=== PATIENT | male | born 1960 | race Caucasian/White ===

== ENCOUNTER → 2016-07-29 | Outpatient (CLI) | payer BC ==
[~2016-07-29] MED LIST: NA BICARBONATE 50 MEQ/50 ML VIAL ONE
--- NOTE | 2016-07-29 15:19 | US ---
Ultrasound-Guided Paracentesis History: Malignant ascites, abdominal pain. Consent: After the risks, benefits, and alternatives of ultrasound-guided paracentesis were explained to the patient and all questions were answered, witnessed informed consent was obtained for ultrasou nd-guided paracentesis. Timeout performed. Procedure: Ultrasound guidance was utilized to locate a large pocket of ascites in the right lower qu adrant of the abdomen. Skin was prepped with ChloraPrep solution. Lidocaine with bicarbonate was use d for local anesthesia. Then, a 6-[employer] [employer] catheter was advanced with ultrasound guidance into the ascites. The needle was removed. Catheter was left in place while 4000 mL of yellow ascites were re moved. Catheter removed at the end of the procedure. Discharge instructions were given. Patient tolerated the procedure well without immediate complicatio ns. Impression: Successful ultrasound-guided paracentesis. Crosscutting Measure #226: Current tobacco user: no.
== END ==
LOC: FIMAGING 13:44
PROVIDERS: ATTEND Internal Medicine Hematology & Oncology
PROC: 0W9G3ZZ Drainage of Peritoneal Cavity, Percutaneous Approach (ICD-10-PCS; principal; 2016-07-29)
DX: R18.0 Malignant ascites (principal); C18.7 Malignant neoplasm of sigmoid colon

== ENCOUNTER → 2016-08-14 | Outpatient (CLI) | payer BC ==
[~2016-08-14] MED LIST changes: +LIDOCAINE 1% 30 ML SDV ONE
--- NOTE | 2016-08-14 13:59 | US ---
Ultrasound-Guided Paracentesis Indication: Malignant ascites. Crosscutting Measure #226 : Current tobacco user No. Consent: After the risks, benefits and alternatives of ultrasound-guided paracentesis were explained to the patient and all questions were answered, witnessed informed consent was obtained. Procedure: A preprocedural ultrasound was performed to identify the largest pocket of ascites in the right lower quadrant. A timeout was performed. The skin was marked, prepped and draped in the usual s terile fashion, and numbed with 1% lidocaine with bicarbonate. A paracentesis catheter was advanced u nder ultrasound guidance, using a sterile probe cover and sterile gel, into the ascites. The needle w as removed and the catheter was left in place while 3800 mL of clear yellow ascites was removed. The catheter was removed at the end of the procedure, hemostasis achieved, and a sterile dressing applied . Postprocedure instructions were given. The patient tolerated the procedure well without immediate com plications. Impression: Ultrasound-guided paracentesis as above.
== END ==
LOC: FIMAGING 12:20
PROVIDERS: ATTEND Nurse Practitioner
PROC: 0W9F3ZZ Drainage of Abdominal Wall, Percutaneous Approach (ICD-10-PCS; principal; 2016-08-14)
DX: R18.0 Malignant ascites (principal); C18.7 Malignant neoplasm of sigmoid colon

== ENCOUNTER → 2016-08-26 | Outpatient (CLI) | payer BC ==
[~2016-08-26] MED LIST changes: +ALBUMIN 25% 100 ML SOLN IV ONE
--- NOTE | 2016-08-26 18:14 | US ---
Ultrasound-Guided Therapeutic Paracentesis Indication: Ascites. History of colon cancer. Crosscutting Measure #226: Current tobacco user: No. Comparison: Paracentesis dated August 14, 2016 Consent: After the risks, benefits and alternatives of ultrasound-guided paracentesis were explained to the patient and all questions were answered, witnessed informed consent was obtained for ultrasoun d-guided paracentesis. Procedure: A preprocedural ultrasound was performed to identify the largest pocket of ascites in the right lower quadrant. The skin was marked, cleaned with ChloraPrep solution, and numbed with 1% lidoc melissa with bicarbonate. A 6-Amharic [employer] catheter was advanced under ultrasound guidance into the a scites. The needle was removed. Catheter was left in place while 5100 mL of straw-colored ascites wer e removed. The catheter was removed at the end of the procedure. Intravenous albumin was uneventfully administered by the radiology nursing staff. Patient received 10 0 mL albumin 25%. Discharge instructions were given. Patient tolerated the procedure well without immediate complicatio ns. Impression: 1. Successful ultrasound-guided paracentesis. 2. Successful removal of 5100 mL of ascites. 3. Albumin was administered intravenously as per protocol.
== END ==
LOC: FIMAGING 13:34
PROVIDERS: ATTEND Internal Medicine Hematology & Oncology
PROC: 0W9F3ZZ Drainage of Abdominal Wall, Percutaneous Approach (ICD-10-PCS; principal; 2016-08-26)
DX: R18.8 Other ascites (principal); C18.9 Malignant neoplasm of colon, unspecified
CPT/HCPCS: P9047

== ENCOUNTER → 2016-09-04 | Outpatient (CLI) | payer BC | LOC: FIMAGING 09:22 | PROVIDERS: ATTEND Internal Medicine Hematology & Oncology | PROC: 0W9F30Z Drainage of Abdominal Wall with Drainage Device, Percutaneous Approach (ICD-10-PCS; principal; 2016-09-04) | DX: R18.0 Malignant ascites (principal); C78.5 Secondary malignant neoplasm of large intestine and rectum | CPT/HCPCS: P9047 ==

== ENCOUNTER → 2016-09-09 | Outpatient (CLI) | payer BC | LOC: FIMAGING 14:05 | PROVIDERS: ATTEND Internal Medicine Hematology & Oncology | PROC: 0W9F3ZZ Drainage of Abdominal Wall, Percutaneous Approach (ICD-10-PCS; principal; 2016-09-09) | DX: R18.0 Malignant ascites (principal); C18.9 Malignant neoplasm of colon, unspecified | CPT/HCPCS: P9047 ==

== ENCOUNTER 2016-09-15 11:06 | Day surgery (SDC) | payer BC ==
[2016-09-15] MEDS ORDERED: LR 1,000 ML IV ONE (11:48)
[2016-09-15] MEDS ORDERED: PROPOFOL 200 MG/20 ML VIAL ONE (12:37)
[2016-09-15] MEDS ORDERED: fentaNYL 250 MCG/5 ML INJ ONE (12:37)
[2016-09-15] MEDS ORDERED: ONDANSETRON 4 MG/2 ML VIAL ONE (12:45)
[2016-09-15] MEDS ORDERED: MIDAZOLAM 2 MG/2 ML VIAL ONE (12:52)
[2016-09-15] MEDS ORDERED: BUPIVACAINE/EPI 0.5% 30 ML SDV ONE ×2 (13:18→13:30)
[2016-09-15] MEDS ORDERED: SKIN ADHESIVE (DERMABOND) 1 EACH TP ONE (13:39)
--- NOTE | 2016-09-15 18:49 | GOP ---
DATE OF OPERATION: 09/15/2016 SURGEON: Cuco Moore MD CENTER CUSTOMER SERVICE ASSOCIATE: Jana Chambers. ANESTHESIA: MAC. ANESTHESIOLOGIST: Dr. Bhardwaj. PREOPERATIVE DIAGNOSIS: Recurrent malignant ascites. POSTOPERATIVE DIAGNOSIS: Recurrent malignant ascites. PROCEDURE PERFORMED: Abdominal PleurX catheter placement with ultrasound and fluoroscopic guidance. FINDINGS: INDICATIONS: A 56-year-old male with a recurrent symptomatic malignant ascites secondary to metasta tic colon cancer. He is undergoing a PleurX catheter placement at this time. Risks and benefits we re explained of bleeding, infection, recurrent ascites, bowel injury. All questions were answered. He desires to proceed. DESCRIPTION OF PROCEDURE: Monitored anesthesia was started. The right lower quadrant was interroga darrius with ultrasound, identifying an easy clear space for a needle puncture. Local anesthetic was in filtrated. The abdominal cavity was directly punctured as evidenced by clear ascitic fluid. A guid ewire passed easily into the abdominal cavity. A counter incision was made superior to the puncture site. The PleurX catheter was then tunneled inferiorly. The cuff was placed on multiple cm away f rom the exit site. The intraoperative fluoroscopy confirmed satisfactory pelvic positioning of the guide wire. The tunnel tract was initially dilated, followed by placement of the tear-away sheath. The catheter was passed to its hub without resistance. There was easy passage of 7.5 L of clear as citic fluid. After catheter placement had been completed, the patient remained hemodynamically norm al without respiratory difficulty with fluid evacuation. Satisfactory hemostasis was assured. The puncture site was closed with a Monocryl suture and Dermabond. The catheter secured to the skin wit h a nylon suture. Sterile dressings were applied and the patient taken to recovery uneventfully. /[id number]/MODL
[2016-09-18] MEDS ORDERED: ALBUMIN 25% 50 ML SOLN IV ONE (15:25)
[2016-09-18] MEDS ORDERED: ALBUMIN 25% 100 ML SOLN IV ONE (15:36)
== END 2016-09-15 16:45 | disposition home or self-care (01) ==
LOC: FSGY 11:06
PROVIDERS: ATTEND Surgery
PROC: 0W9G30Z Drainage of Peritoneal Cavity with Drainage Device, Percutaneous Approach (ICD-10-PCS; principal; 2016-09-15 12:45)
DX: C78.6 Secondary malignant neoplasm of retroperitoneum and peritoneum (principal); R18.0 Malignant ascites; Z90.49 Acquired absence of other specified parts of digestive tract; Z85.038 Personal history of other malignant neoplasm of large intestine
CPT/HCPCS: 49406; 76001; C1729; J2250; J2405; J2704; J3010; P9047

== ENCOUNTER 2016-09-23 11:47 | Inpatient (IN) | payer BC ==
[2016-09-23] MEDS ORDERED: ONDANSETRON 4 MG/2 ML VIAL IVP PRN (14:03)
[2016-09-23] MEDS ORDERED: ACETAMINOPHEN 325 MG TAB PO PRN (14:03)
[2016-09-23] MEDS ORDERED: HYDROmorphONE/DILAUDID 2 MG/ML INJ IVP PRN (14:03)
[2016-09-23] MEDS ORDERED: PROMETHAZINE HCL 25 MG/ML INJ IVP PRN (14:03)
[2016-09-23] MEDS ORDERED: oxyCODONE IR 5 MG TAB PO PRN (14:03)
[2016-09-23] MEDS ORDERED: D5W NS W/ 20 KCl/L 1,000 ML IV SCH (14:15)
--- NOTE | 2016-09-23 14:40 | GHP ---
[f rep st] HISTORY AND PHYSICAL DATE OF ADMISSION: 09/23/2016 CHIEF COMPLAINT: Nausea, vomiting, constipation. HPI: This is a 56-year-old male with history of colon cancer and peritoneal carcinomatosis who had a Pavillion drain placed last week who was directly admitted to [address] [place] [address] from his oncologist's office du e to persistent nausea and vomiting. The patient states that he has had nausea and vomiting the past couple days, that got worse today to the point where he is unable to tolerate fluids or solids. Currently he denies any flatus. He did have a small bowel movement this morning that he described as "not productive." He denied any feve rs or chills. A Pavillion drain was placed last week by Dr. Moore, where per the operative note 7.5 L of clear ascitic fluid were removed. Since the drain was placed he has had problems with removing fluid from his catheter. His was able to remove 750 cc on Wednesday but he has not been drained since. PAST MEDICAL HISTORY: 1. Colon cancer and peritoneal carcinomatosis. Status post PleurX catheter placement on 09/15/2016 . 2. Obstructive sleep apnea. PAST SURGICAL HISTORY: 1. Bowel resection. 2. PleurX catheter placement. HOME MEDICATIONS: Were reviewed. Refer to 2 Minutes for details. ALLERGIES: No known drug allergies. SOCIAL HISTORY: The patient is and lives in [place] with his . He denies any alcohol , tobacco or illicit drug use. FAMILY HISTORY: Significant for colon cancer in his father. REVIEW OF SYSTEMS: Comprehensive 10-point review of systems was done and is negative except for as mentioned in the HPI. PHYSICAL EXAM: GENERAL: No acute distress. HEAD: Normocephalic, atraumatic. EYES: PERRLA. Scl erae anicteric. MOUTH: Moist mucous membranes. NECK: Supple. No lymphadenopathy. CARDIOVASCULA R: S1-S2 no murmurs, rubs, clicks, gallops, or JVD. No lower extremity edema. PULMONARY: Lungs a re clear. No wheezes, rales, or rhonchi. ABDOMEN: Significantly distended with absent bowel sound s. There is no guarding or rebound tenderness. EXTREMITIES: No clubbing or cyanosis. 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 No focal motor or sensory deficits. SKIN: Scattered erythematous papules over the chest and abdomen. Diagnostics done this morning at [facility] were reviewed. WBC is 8.7, hemoglobin 12.9, hematocrit 40.4, platelets 469. Sodium 129, potassium 5.5, chloride 97, BUN 17, creatinine 0 .8, glucose 108. LFTs unremarkable. Alkaline phosphatase elevated at 141. CEA was 73.4. Abdomina l x-ray was reviewed and visualized and personally interpreted as negative for free air, normal hemalatha l gas pattern. ASSESSMENT AND PLAN: This is a 56-year-old male with history of colon cancer with peritoneal carcin omatosis status post PleurX catheter placement last week, presenting with: 1. Nausea, vomiting and constipation concerning for bowel obstruction due to recurrent ascites. a. Plan. The patient will be admitted to the oncology unit. We will attempt to access the patient 's PleurX catheter with appropriate vacuum bottle to remove the fluid. We will order a CT scan of t he abdomen and pelvis to further evaluate for obstruction. I have a call in to the patient's surgeo n, Dr. Cuco Moore, to help with this situation as well. 2. Hyponatremia, likely hypervolemic in etiology. a. Plan: Recommend diuresis and monitor. 3. Colon cancer and peritoneal carcinomatosis. PLAN: Oncology has been consulted. The patient requests to be DNR status. /[id number]/MODL
[2016-09-23] MEDS ORDERED: IOPAMIDOL (ISOVUE-300) 100 ML BTL IV ONE (16:15)
--- NOTE | 2016-09-23 16:45 | GCON ---
[f rep st] CONSULTATION HEMATOLOGY/ONCOLOGY CONSULTATION REASON FOR CONSULTATION: Metastatic colon cancer, nausea, vomiting, abdominal distention. HISTORY OF PRESENT ILLNESS: The patient is a 56-year-old man diagnosed in May 2014 with a stage IIIA mucinous colon cancer, treated with hemicolectomy and adjuvant chemotherapy (FOLFOX), completed 01/2015. He recurred in July 2015 and was treated with FOLFIRI plus bevacizumab from July to May 2016. He began irinotecan and panitumumab in June 2016. He has peritoneal carcinomatosis and has required frequent paracentesis. He recently had a peritoneal PleurX catheter placed. He and his have not been able to get additional bottles approved yet by the insurance and so he has not been able to do regular home drains. He was able to remove 750 cc on Wednesday. He has noted nausea and vomiting over the last few days as well as increased abdominal distention. He has also been constipated with very small, hard bowel movements, last this morning. He has not been using antiemetics. His most recent chemotherapy was 09/09/16 (cycle 5 of irinotecan plus panitumumab). PAST MEDICAL HISTORY: 1. Obstructive sleep apnea on BiPAP. 2. Possible asthma. PAST SURGICAL HISTORY: 1. LAR, 2014. 2. Lipoma removed from left shoulder, 2014. 3. Tonsillectomy, age 6. SOCIAL HISTORY: He is . 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 He rarely drinks alcohol. He lives in [place] with his . FAMILY HISTORY: His father had colon surgery at 37 but is not clear if this was for cancer. His father at 77 from prostate cancer. He has 3 children and 3 siblings. No other family history of malignancy. MEDICATIONS: Acyclovir 400 mg b.i.d., topical clindamycin for rash associated with panitumumab, Lomotil p.r.n., minocycline 100 mg daily (for panitumumab- related rash), tramadol p.r.n., [place] p.r.n. REVIEW OF SYSTEMS: CONSTITUTIONAL: Fatigue and generalized weakness. No fevers or chills. HEENT: No mucositis. No vision changes. CARDIOVASCULAR: No chest pain, palpitations, PND, orthopnea, or lower extremity edema. RESPIRATORY: No cough, pleurisy, dyspnea. GI: As above. HEMATOLOGIC: No bleeding or bruising. NEUROLOGIC: No headache. He has residual peripheral neuropathy from his prior FOLFOX therapy. MUSCULOSKELETAL: No new bony complaints. PHYSICAL EXAMINATION: VITAL SIGNS: From the clinic show BP 102/60, pulse 107, respirations 18, temperature 97.6, O2 sat 99% on room air. His weight is down 13 pounds from 2 weeks ago (202.6 versus 215.6). Vital signs pending on the floor. GENERAL: Pleasant gentleman who appears uncomfortable. Alert, oriented. HEENT: No scleral icterus. CARDIOVASCULAR: Regular rate and rhythm. No pretibial edema. LUNGS: Clear to auscultation bilaterally. ABDOMEN: Significantly distended. Right-sided peritoneal catheter with dry, clean dressing. No obvious masses or organomegaly. NEUROLOGIC: Grossly nonfocal. SKIN: Diffuse erythematous papular rash over the trunk and face. LABORATORY STUDIES: WBC 8.7, hemoglobin 12.9, platelets 469,000. Sodium 129, potassium 5.5, chloride 97, bicarbonate 25, BUN 17, creatinine 0.8, glucose 108. Total bilirubin 0.5, alkaline phosphatase slightly elevated at 141, AST 23 , ALT 33. CEA 73.4 (45.8 on 09/09/16). IMPRESSION: 1. Nausea, vomiting, and abdominal distention: Likely due to ascites and likely constipation. He will have bedside drainage of his peritoneal catheter. We plan CT (compared with [facility] 05/2016) to exclude bowel obstruction and evaluate for progressive disease. 2. Constipation: Bowel regimen. 3. Colon cancer with peritoneal carcinomatosis, cycle 5 day 15 of panitumumab/ irinotecan. 4. Rash: Unchanged, known side effect of panitumumab. /[id number]/MODL MTDD
[2016-09-23 19:32] LABS: INR 1.2 (0.83-1.16); PROTIME(PATIENT) 15.2 SEC (12.0-15.0)
[2016-09-23 19:33] LABS: APTT 34.8 SEC (23.0-38.0)
--- NOTE | 2016-09-23 21:01 | GCON ---
[f rep st] CONSULTATION DATE OF CONSULTATION: 09/23/2016 REASON FOR EVALUATION: Abdominal pain, rule out obstruction. HISTORY OF PRESENT ILLNESS: 56-year-old, male with a significant history of mucinous adenocarcinoma of the colon. He underwent a laparoscopic low anterior resection in June of 2014. He was found to have node positive disease. He underwent additional adjuvant therapy. The patient has developed progressive metastatic recurrence with ongoing problems related to malignant ascites. He underwent a PleurX catheter placement approximately a week ago. He has been producing approximately 7 L a week of abdominal fluid. He presented to his oncologist earlier today with unrelenting nausea and vomiting over the last couple of days. Bowel movements have been less than normal. Because of concerns for a possible bowel obstruction, chemotherapy was withheld today and the patient was sent to the hospital for further assessment. PAST MEDICAL HISTORY: Asthma, eczema, obstructive sleep apnea, vitamin D deficiency, GERD, history of H pylori gastritis, metastatic colon cancer. PAST SURGICAL HISTORY: Laparoscopic low anterior colon resection. Port placement and removal. Vasectomy, tonsillectomy. MEDICATIONS: Acyclovir, topical clindamycin, Lomotil, minocycline and tramadol p.r.n. ALLERGIES: No known drug allergies. SOCIAL HISTORY: No alcohol, no tobacco. He is [place]. 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 REVIEW OF SYSTEMS: Notable for a rash related to panitumumab and GI complaints as above. Otherwise 12-point system unremarkable. PHYSICAL EXAM: VITAL SIGNS: Temperature 36.6, blood pressure 115/85, heart rate 93, respirations 12. GENERAL: The patient is alert, appropriate, comfortable, thin in appearance, anicteric. No cervical or supraclavicular lymphadenopathy. HEART: Regular. LUNGS: Clear. ABDOMEN: Less distended, having recently drained 4 L of ascites and extensive palpable omental caking appreciated. No skin nodules. PleurX catheter intact. EXTREMITIES: Unremarkable. NEUROLOGIC: Unremarkable. SKIN: Diffuse chemotherapy related rash. DIAGNOSTIC STUDIES: CT scan: Large volume pelvic ascites as well as a loculated left upper quadrant ascites collection posterior to the stomach with complete extrinsic compression, extensive omental caking present throughout. No clinical evidence of bowel obstruction. IMPRESSION: 1. Nausea and vomiting secondary to a loculated left upper quadrant malignant fluid collection compressing his stomach. Recommend CT-guided aspiration of his left upper quadrant fluid collection. Depending on the how fast this collection recurs, would consider possible subsequent drain placement with paracendesis if continues to recur, as a palliative adjunct. Will review care plan with Dr. Angeles regarding possible alternative chemotherapeutic agents. 2. Pleurx catheter is nicely in place regarding his free-flowing pelvic ascites. The patient and remain completely appropriate regarding their prognosis and are in agreement with the aforementioned plan. Case was discussed with Dr. Lida Moore and Dr. Gonzáles. A call was placed to Dr. Angeles. /[id number]/MODL MTDD
[2016-09-24 04:29] LABS: % IMMATURE GRANULYOCYTES 0.4 % (0.0-1.1); ABSOLUTE IMMATURE GRANULOCYTES 0.03 10^3/uL (0.00-0.10); ADD DIFF? NO; ADD MORPH? NO; ADD SCAN? NO; ATYPICAL LYMPHOCYTE FLAG 20 (0-99); FRAGMENT RBC FLAG 0 (0-99); HEMATOCRIT 36.2 % (40.0-51.0); HEMOGLOBIN 11.7 g/dL (13.7-17.5); LEFT SHIFT FLG 0 (0-99); LIPEMIA HEMOLYSIS FLAG 80 (0-99); MEAN CELL HEMOGLOBIN 26.4 pg (27.9-34.1); MEAN CELL HEMOGLOBIN CONCENTR. 32.3 g/dL (32.4-36.7); MEAN CELL VOLUME 81.5 fL (81.5-99.8); MEAN PLATELET VOLUME 8.4 fL (8.7-11.7); PLATELET CLUMPS FLAG 30 (0-99); PLATELET COUNT 383 10^3/uL (150-400); RED BLOOD CELL COUNT 4.44 10^6/uL (4.40-6.38); RED CELL DISTRIBUTION WIDTH 17.2 % (11.5-15.2)
[2016-09-24 04:46] LABS: ANION GAP 7 mEq/L (8-16); CALCIUM 8.5 mg/dL (8.5-10.4); CARBON DIOXIDE 24 mEq/l (22-31); CHLORIDE 100 mEq/L (97-110); CREATININE 0.8 mg/dL (0.7-1.3); GLOMERULAR FILTRATION RATE > 60; GLUCOSE 114 mg/dL (70-100); POTASSIUM 5.4 mEq/L (3.5-5.2); SODIUM 131 mEq/L (134-144)
[2016-09-24 08:18] VITALS: BP 111/75; PULSE 92; RESP 18; TEMP 98.3; O2SAT 95
[2016-09-24] MEDS ORDERED: ENOXAPARIN 40 MG/0.4 ML SYR SC SCH (09:00)
[2016-09-24] MEDS ORDERED: fentaNYL 100 MCG/2 ML INJ ONE (10:36)
[2016-09-24] MEDS ORDERED: LIDOCAINE 1% 30 ML SDV ONE (10:44)
--- NOTE | 2016-09-24 13:05 | SOAPPROG ---
SOAP Progress Note Assessment/Plan: Assessment: 1. 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 4L ascites removed yesterday from pleuryx catheter. anticipate removal of [address] scan consistent with progression, as is clinical picture. Will follow up with Dr. Angeles next week. May be eligible for clinical trial. Standard 4th line therapy for this disease is likely not of benefit. Plan: 09/24/16 13:02 Subjective: wants to take off additional ascites, ate lunch and feels ok Objective: Vital Signs Temp Pulse Resp BP Pulse Ox 36.8 C 92 18 111/75 95 09/24/16 08:17 09/24/16 08:17 09/24/16 08:17 09/24/16 08:17 09/24/16 08:17 Laboratory Results 09/24/16 04:22 09/24/16 04:22 09/23/16 09/24/16 09/25/16 05:59 05:59 05:59 Intake Total 1189 Output Total 4000 Balance -2811 PT 15.2 SEC (12.0-15.0) H 09/23/16 18:35 INR 1.20 (0.83-1.16) H 09/23/16 18:35 Physical Exam - Physical Exam General Appearance: alert, no apparent distress Neck: supple Respiratory: lungs clear Abdomen: other (distended with ascites, palpable masses, pleuryx catheter) Skin: other (diffuse papular rash) Extremities: No pedal edema Neuro/Psych: alert, oriented x 3 ICD10 Worksheet Patient Problems: Problems Problem Status Onset Colon cancer Acute
--- NOTE | 2016-09-24 13:16 | SOAPPROG ---
SOAP Progress Note Assessment/Plan: Assessment: feeling better s/p drainage. tolerated lunch. discomfort better. avss. abd soft, approp ascites lower pelvis present. family plans to drain again at bedside. ok for discharge this afternoon. if LUQ collection continues to reaccumulate, will consider talc peritoneocentesis as a possible adjunct. he will f/u with dr. jean regarding ongoing treatment options. he and his are appreciative and reasonable regarding his care home prognosis and next options (?chemo vs palliation). Plan: 09/24/16 13:12 Objective: Vital Signs Temp Pulse Resp BP Pulse Ox 36.8 C 92 18 111/75 95 09/24/16 08:17 09/24/16 08:17 09/24/16 08:17 09/24/16 08:17 09/24/16 08:17 Laboratory Results 09/24/16 04:22 09/24/16 04:22 09/23/16 09/24/16 09/25/16 05:59 05:59 05:59 Intake Total 1189 Output Total 4000 Balance -2811 PT 15.2 SEC (12.0-15.0) H 09/23/16 18:35 INR 1.20 (0.83-1.16) H 09/23/16 18:35 ICD10 Worksheet Patient Problems: Problems Problem Status Onset Colon cancer Acute
[2016-09-24] MEDS ORDERED: PROCHLORPERAZINE MALEATE 10 MG TAB PO PRN (13:49)
[2016-09-24] MEDS ORDERED: NAPROXEN NA DIPHENHYDRAMIN HCL PO PRN (13:49)
[2016-09-24] MEDS ORDERED: HYDROCODONE/APAP 5/325 TAB PO PRN (13:49)
[2016-09-24] MEDS ORDERED: MAGIC MOUTHWASH PO SCH (14:00)
[2016-09-24] MEDS ORDERED: traMADol 50 MG TAB PO SCH (14:00)
--- NOTE | 2016-09-24 16:48 | GDS ---
[f rep st] DISCHARGE SUMMARY DISCHARGE DIAGNOSES: 1. Colon cancer with peritoneal carcinomatosis presenting with nausea and vomiting, due to recurren t malignant ascites compressing the stomach. 2. Hyponatremia. 3. Mild hyperkalemia. CONSULTANTS: Dr. William Moore and Dr. Lida Moore. HOSPITAL COURSE STATED BY PROBLEM: Loculated malignant ascites: [facility] with p.o. intolerance and nausea and vomiting. A CT of the abdomen was done, which revealed a loculated pocket of ascites compressing his stomach. Subsequently, a CT-guided drainage of this l oculation was done on 09/24/2016. Postprocedure, the patient is doing better and is now tolerating fluids and solids. The patient does have a PleurX catheter that was placed last week that appears t o be working properly. He plans to follow up with Dr. Moore next week for routine followup. PHYSICAL EXAMINATION: VITAL SIGNS: On day of discharge, blood pressure 111/75, pulse 92, respirato ry rate 18, O2 saturation 95% on room air. Temperature afebrile. ABDOMEN: Soft, but distended. T here is no guarding or rebound tenderness. PROCEDURES DONE THIS HOSPITAL STAY: CT-guided paracentesis done 09/24/2016. DISCHARGE MEDICATIONS: Please refer to discharge medication reconciliation in [facility]. DISCHARGE INSTRUCTIONS: The patient will be discharged from the hospital, where he should follow up with Dr. Cuco Moore next week as well as with his oncologist as scheduled. /[id number]/MODL
[2016-09-24] MEDS ORDERED: CLINDAMYCIN 1% 60 ML LOTION TP SCH (21:00)
[2016-09-24] MEDS ORDERED: ACETAMN/DIPHENHYDRAMINE 500/25MG TAB PO SCH (21:00)
[2016-09-24] MEDS ORDERED: ACYCLOVIR 400 MG TAB PO SCH (21:00)
[2016-09-24] MEDS ORDERED: MINOCYCLINE HCL 50 MG CAP PO SCH (21:00)
== END 2016-09-24 14:28 | disposition home or self-care (01) | DRG 948 ==
LOC: F1N 13:13 → OBSVTOIN 14:04
PROVIDERS: ADMIT Internal Medicine; ATTEND Internal Medicine
PROC: 0W9G3ZZ Drainage of Peritoneal Cavity, Percutaneous Approach (ICD-10-PCS; principal; 2016-09-24)
DX: R18.0 Malignant ascites (principal); C78.6 Secondary malignant neoplasm of retroperitoneum and peritoneum; Z85.038 Personal history of other malignant neoplasm of large intestine; G47.33 Obstructive sleep apnea (adult) (pediatric); Z66 Do not resuscitate
CPT/HCPCS: 97161-GP; J1170; J2550; J3010; Q9967

== ENCOUNTER → 2016-09-23 | Outpatient (CLI) | payer BC | LOC: FIMAGING 09:42 | PROVIDERS: ATTEND Internal Medicine Hematology & Oncology | DX: R14.0 Abdominal distension (gaseous) (principal); R11.10 Vomiting, unspecified; Z85.038 Personal history of other malignant neoplasm of large intestine ==

== ENCOUNTER → 2016-09-30 | Outpatient (CLI) | payer BC | LOC: FIMAGING 13:10 | PROVIDERS: ATTEND Internal Medicine Hematology & Oncology | DX: R18.8 Other ascites (principal); C78.6 Secondary malignant neoplasm of retroperitoneum and peritoneum; C18.7 Malignant neoplasm of sigmoid colon ==

== ENCOUNTER 2016-10-21 10:45 | Observation (INO) | payer BC ==
[2016-10-21] MEDS ORDERED: ONDANSETRON 4 MG/2 ML VIAL IVP ONE (11:42)
[2016-10-21] MEDS ORDERED: NS 1,000 ML IV ONE (11:42)
[2016-10-21] MEDS ORDERED: HYDROmorphONE/DILAUDID 1 MG/ML SYR IVP ONE (11:42)
--- NOTE | 2016-10-21 11:46 | EDPHY ---
H & P Stated Complaint: sent from [facility] w r/t high potassium/low sodium Time Seen by Provider: 10/21/16 11:37 HPI/ROS: CHIEF COMPLAINT: Hyponatremia HISTORY OF PRESENT ILLNESS: The patient is a 56-year-old man who comes to the emergency department from his cancer clinic. His labs today revealed a sodium of 123 and a potassium of 6. He has had difficulty with vomiting and keeping food down over the last month but his symptoms have increased over the last few days. No fever. No diarrhea. He has felt constipated. He has a history of colon cancer with carcinomatosis to the peritoneum. He has a peritoneal drain in place that drains approximately 2 L of fluid a day. He has not been febrile. His abdomen is not tender. His chemotherapy medication was not working and so they are changing to a new one. He has not yet begun. REVIEW OF SYSTEMS: Constitutional: denies: chills, fever, recent illness, recent injury EENTM: denies: blurred vision, double vision, nose congestion Respiratory: denies: cough, shortness of breath Cardiac: denies: chest pain, irregular heart rate, lightheadedness, palpitations Gastrointestinal/Abdominal: See HPI Genitourinary: denies: dysuria, frequency, hematuria, pain Musculoskeletal: denies: joint pain, muscle pain Skin: denies: lesions, rash, jaundice, bruising Neurological: denies: headache, numbness, paresthesia, tingling, dizziness, weakness Hematologic/Lymphatic: denies: blood clots, easy bleeding, easy bruising Immunologic/allergic: denies: HIV/AIDS, transplant EXAM: GENERAL: Fatigue, cachectic HEAD: Atraumatic, normocephalic. EYES: Pupils equal round and reactive to light, extraocular movements intact, sclera anicteric, conjunctiva are normal. ENT: TMs normal, nares patent, oropharynx clear without exudates. Moist mucous membranes. NECK: Normal range of motion, supple without lymphadenopathy or JVD. LUNGS: Breath sounds clear to auscultation bilaterally and equal. No wheezes rales or rhonchi. HEART: Regular rate and rhythm without murmurs, rubs or gallops. ABDOMEN: Significant distention, lumps palpable, drain in place, well-appearing BACK: No CVA tenderness, no spinal tenderness, step-offs or deformities EXTREMITIES: Normal range of motion, no pitting or edema. No clubbing or cyanosis. NEUROLOGICAL: Cranial nerves II through XII grossly intact. Normal speech, normal gait. 5/5 strength, normal movement in all extremities, normal sensation PSYCH: Normal mood, normal affect. SKIN: Warm, dry, normal turgor, no visible rashes or lesions. Source: Patient Exam Limitations: No limitations - Personal History Current Tetanus/Diphtheria Vaccine: Yes - Medical/Surgical History Hx Asthma: No Hx Chronic Respiratory Disease: No Hx Diabetes: No Hx Cardiac Disease: No Hx Renal Disease: No Hx Cirrhosis: No Hx Alcoholism: No Hx HIV/AIDS: No Hx Splenectomy or Spleen Trauma: No Other PMH: CANCER/CHEMO, Pluerex drain rt. abdomen - Family History Significant Family History: No pertinent family hx - Social History Smoking Status: Never smoked Alcohol Use: Sober Drug Use: None Constitutional: Initial Vital Signs Temperature (C) 36.2 C 10/21/16 11:00 Heart Rate 109 H 10/21/16 11:00 Respiratory Rate 20 10/21/16 11:00 Blood Pressure 100/76 10/21/16 11:00 O2 Sat (%) 93 10/21/16 11:00 O2 Delivery Mode Nasal Cannula O2 (L/minute) 2 Allergies/Adverse Reactions: No Known Allergies Allergy (Verified 10/21/16 10:56) Home Medications: Medication Instructions Recorded Acyclovir [Zovirax 400 mg (*)] 400 mg PO BID 09/14/16 Acetamn/Diphenhydramine 500/25 1 each PO HS 09/23/16 [Tylenol PM (*)] Clindamycin 1% [Cleocin 1% Lotion] 1 hal TP BID 09/23/16 Diphenoxylate HCl/Atrop Sulf 1 - 2 tab PO QID PRN 09/23/16 [Lomotil Tab (*)] Hydrocodone/Acetaminophen [[place] 1 tab PO Q4HRS PRN 09/23/16 5/325 (*)] Magic Mouthwash 1 tsp PO AD 09/23/16 Minocycline HCl [Minocin 50 mg (*)] 100 mg PO BID 09/23/16 Naproxen Sod/Diphenhydramine 1 each PO DAILY PRN 09/23/16 [Aleve Pm Caplet] Prochlorperazine Maleate 10 mg PO Q6HRS PRN 09/23/16 [Compazine 10mg (*)] traMADol [Ultram 50 mg (*)] 50 mg PO Q4 09/23/16 DEXAMETHASONE 10/21/16 LORAZEPAM 10/21/16 Lasix 10/21/16 Ondansetron 10/21/16 morphINE 10/21/16 Medical Decision Making - Diagnostics EKG Interpretation: An EKG obtained and was read and documented in trace view. Please see trace view for full reading and report. Sinus rhythm, no acute ischemic changes ED Course/Re-evaluation: Will start sodium repletion. The patient is clinically slightly dehydrated despite he has significant ascites. He has a drain in place that we will continue to have drain. No sign of peritonitis. No sign of infection. We will recheck his lab work. Also treat him for nausea. He will likely require admission. 12:50 p.m. the patient has been here for 2 hours and we have not gotten blood work or started IV fluids. Nursing staff is currently attempting to start an IV. 1:55 p.m. the patient has a sodium of 120. He is also anemic but close to baseline. His renal function is appropriate. His potassium is slightly elevated but no significant EKG abnormalities or arrhythmias. Will consult hospitalist service for admission. 2:15 p.m. I discussed the case with Dr. Linda Martin who will admit to the medical service. Differential Diagnosis: Partial list of the Differential diagnosis considered include but were not limited to; hyponatremia, hyperkalemia, dehydration and although unlikely based on the history and physical exam, I also considered peritonitis, sepsis, pneumonia. Critical Care Time: Critical care time spent by me, Dr. Gregory exclusive with this patient was 35 minutes, exclusive of the PA time exclusive of procedures. The organ system that was at risk was renal cardiac and I gave IV fluids, consultation to prevent worsening of the patient's condition - Data Points Laboratory Results: Laboratory Results 10/21/16 13:10 10/21/16 13:10 10/21/16 10/21/16 13:10 13:10 WBC 13.10 10^3/uL H 10^3/uL (3.80-9.50) RBC 4.10 10^6/uL L 10^6/uL (4.40-6.38) Hgb 10.0 g/dL L g/dL (13.7-17.5) Hct 31.7 % L % (40.0-51.0) MCV 77.3 fL L fL (81.5-99.8) MCH 24.4 pg L pg (27.9-34.1) MCHC 31.5 g/dL L g/dL (32.4-36.7) RDW 17.2 % H % (11.5-15.2) Plt Count 316 10^3/uL D 10^3/uL (150-400) MPV 8.4 fL L fL (8.7-11.7) Neut % (Auto) 93.4 % H % (39.3-74.2) Lymph % (Auto) 2.7 % L % (15.0-45.0) [place] % (Auto) 2.9 % L % (4.5-13.0) Eos % (Auto) 0.1 % L % (0.6-7.6) Baso % (Auto) 0.1 % L % (0.3-1.7) Nucleat RBC Rel Count 0.0 % % (0.0-0.2) Absolute Neuts (auto) 12.25 10^3/uL H 10^3/uL (1.70-6.50) Absolute Lymphs (auto) 0.35 10^3/uL L 10^3/uL (1.00-3.00) Absolute Monos (auto) 0.38 10^3/uL 10^3/uL (0.30-0.80) Absolute Eos (auto) 0.01 10^3/uL L 10^3/uL (0.03-0.40) Absolute Basos (auto) 0.01 10^3/uL L 10^3/uL (0.02-0.10) Absolute Nucleated RBC 0.00 10^3/uL 10^3/uL (0-0.01) Immature Gran % 0.8 % % (0.0-1.1) Immature Gran # 0.10 10^3/uL 10^3/uL (0.00-0.10) Sodium 120 mEq/L L mEq/L (134-144) Potassium 6.0 mEq/L H mEq/L (3.5-5.2) Chloride 90 mEq/L L mEq/L (97-110) Carbon Dioxide 23 mEq/l mEq/l (22-31) Anion Gap 7 mEq/L L mEq/L (8-16) BUN 49 mg/dL H mg/dL (7-23) Creatinine 1.1 mg/dL mg/dL (0.7-1.3) Estimated GFR > 60 Glucose 108 mg/dL H mg/dL (70-100) Calcium 8.0 mg/dL L mg/dL (8.5-10.4) Total Bilirubin 0.8 mg/dL mg/dL (0.1-1.4) Conjugated Bilirubin 0.6 mg/dL H mg/dL (0.0-0.5) Unconjugated Bilirubin 0.2 mg/dL mg/dL (0.0-1.1) AST 99 IU/L H IU/L (17-59) ALT 64 IU/L IU/L (21-72) Alkaline Phosphatase 903 IU/L H IU/L (38-126) Total Protein 5.0 g/dL L g/dL (6.3-8.2) Albumin 2.3 g/dL L g/dL (3.5-5.0) Lipase 39.0 IU/L IU/L (23-300) Medications Given: Discontinued Medications Hydromorphone HCl (Dilaudid) 0.5 mg IVP EDNOW ONE Stop: 10/21/16 11:43 Last Admin: 10/21/16 13:15 Dose: 0.5 mg Sodium Chloride (Ns) 1,000 mls @ 0 mls/hr IV ONCE ONE PRN Reason: Wide Open Stop: 10/21/16 11:43 Last Admin: 10/21/16 13:15 Dose: 1,000 mls Ondansetron HCl (Zofran) 8 mg IVP EDNOW ONE Stop: 10/21/16 11:43 Last Admin: 10/21/16 13:15 Dose: 8 mg Departure - Departure Disposition: [facility] Acute Clinical Impression: Hyponatremia, Hyperkalemia Condition: Fair Referrals: Valentina Patel MD [Primary Care Provider] - As per Instructions
--- NOTE | 2016-10-21 11:48 | CPEKG ---
Heart Rate: 98 RR Interval: 612 P-R Interval: 140 QRSD Interval: 80 QT Interval: 312 QTC Interval: 399 P [place]: 36 QRS [place]: 31 T Wave [place]: 53 EKG Severity - NORMAL ECG - EKG Impression: SINUS RHYTHM Electronically Signed By: Santi Gregory 21-Oct-2016 11:52:50
[2016-10-21 13:25] LABS: % IMMATURE GRANULYOCYTES 0.8 % (0.0-1.1); ADD DIFF? NO; ADD MORPH? NO; ADD SCAN? NO; ATYPICAL LYMPHOCYTE FLAG 0 (0-99); FRAGMENT RBC FLAG 0 (0-99); HEMATOCRIT 31.7 % (40.0-51.0); LEFT SHIFT FLG 0 (0-99); LIPEMIA HEMOLYSIS FLAG 80 (0-99); MEAN CELL HEMOGLOBIN 24.4 pg (27.9-34.1); MEAN CELL HEMOGLOBIN CONCENTR. 31.5 g/dL (32.4-36.7); MEAN CELL VOLUME 77.3 fL (81.5-99.8); MEAN PLATELET VOLUME 8.4 fL (8.7-11.7); PLATELET CLUMPS FLAG 0 (0-99); PLATELET COUNT 316 10^3/uL (150-400); RED CELL DISTRIBUTION WIDTH 17.2 % (11.5-15.2)
[2016-10-21 13:41] LABS: ALANINE AMINOTRANSFERASE 64 IU/L (21-72); ALBUMIN 2.3 g/dL (3.5-5.0); ALKALINE PHOSPHATASE 903 IU/L (38-126); ANION GAP 7 mEq/L (8-16); ASPARTATE AMINOTRANSFERASE 99 IU/L (17-59); BILIRUBIN,TOTAL 0.8 mg/dL (0.1-1.4); BILIRUBIN-CONJUGATED 0.6 mg/dL (0.0-0.5); BILIRUBIN-UNCONJUGATED 0.2 mg/dL (0.0-1.1); CARBON DIOXIDE 23 mEq/l (22-31); CHLORIDE 90 mEq/L (97-110); CREATININE 1.1 mg/dL (0.7-1.3); GLOMERULAR FILTRATION RATE > 60; GLUCOSE 108 mg/dL (70-100); SODIUM 120 mEq/L (134-144)
[2016-10-21] MEDS ORDERED: SODIUM POLY SULF 15 GM/60 ML BOTTLE PO ONE ×2 (14:15→15:27)
[2016-10-21] MEDS ORDERED: ONDANSETRON DISINTEGRATING 4 MG TAB PO PRN ×2 (14:17→15:14)
[2016-10-21] MEDS ORDERED: ACETAMINOPHEN 325 MG TAB PO PRN (14:17)
[2016-10-21] MEDS ORDERED: ONDANSETRON 4 MG/2 ML VIAL IVP PRN (14:17)
[2016-10-21] MEDS ORDERED: MAGNESIUM HYDROXIDE 30 ML UDCUP PO PRN (15:14)
[2016-10-21] MEDS ORDERED: SENNOSIDES 1 TAB PO PRN (15:14)
[2016-10-21] MEDS ORDERED: NAPROXEN SOD PO PRN (15:14)
[2016-10-21] MEDS ORDERED: LORazepam 0.5 MG TAB PO PRN (15:14)
[2016-10-21] MEDS ORDERED: DIPHENHYDRAMINE PO PRN (15:14)
[2016-10-21] MEDS ORDERED: ALBUMIN 25% 100 ML IV ONE (16:50)
--- NOTE | 2016-10-21 17:23 | GCON ---
[f rep st] CONSULTATION INPATIENT ONCOLOGY CONSULTATION DATE OF CONSULTATION: 10/21/2016 REFERRING PHYSICIAN: Loli Martin MD OUTPATIENT ONCOLOGIST: Dr. Robyn Angeles. REASON FOR CONSULTATION: Peritoneal carcinomatosis due to colon cancer. HISTORY OF PRESENT ILLNESS: The patient is a 56-year-old man with progressive peritoneal carcinomat osis due to colon cancer. He was initially diagnosed in May 2014 with stage IIIA mucinous canc er treated with hemicolectomy and adjuvant FOLFOX chemotherapy. He recurred about 6 months after th e end of his adjuvant treatment and was treated with FOLFIRI and Avastin and then later irinotecan a nd panitumumab in June 2016. He has developed progressive peritoneal carcinomatosis. A Drew drain was placed about a month ago. He is currently taking off about 2 L. He has decreased p.o. in take and also some nausea as well as constipation. He had been on Compazine which was not very effe ctive. He was seen yesterday by a palliative care physician at [facility] and was started on Zofran, which he did find much more helpful. Today, he was seen in clinic feeling weaker. He had some electrolyte abnormalities including sodium of 120, potassium 6.0, BUN of 49 and a creatinine of 1.1. He is admitted for further evaluation. I should note that his CEA is up to 498, previously 192 approximately 2 weeks ago. PAST MEDICAL HISTORY: 1. Colon cancer as described above. 2. Obstructive sleep apnea. CURRENT MEDICATIONS: Include dexamethasone 4 mg daily, Lovenox 40 mg subcutaneously daily, Lasix 40 mg p.o. daily, morphine 30 mg p.o. b.i.d. and Zofran as needed. ALLERGIES: He has no known drug allergies. FAMILY HISTORY: Noncontributory. SOCIAL HISTORY: He is a nonsmoker, nondrinker. He lives with his . REVIEW OF SYSTEMS: Other than pertinent positives noted in the HPI, a 14-point review of systems ne gative. PHYSICAL EXAMINATION: VITAL SIGNS: His temperature is 36.7, blood pressure 102/79, heart rate 93, oxygen saturation 94% on room air. GENERAL: He is a cachectic man in no acute distress. HEENT: S clerae anicteric. Oropharynx is clear. NECK: Supple without lymphadenopathy. LUNGS: Clear to au scultation bilaterally. CARDIAC: Regular rate and rhythm. No murmurs, gallops or rubs. ABDOMEN: Markedly distended with ascites. There were several abdominal masses that were clearly palpable. EXTREMITIES: 2+ edema. NEUROLOGIC: Alert and oriented x3. LABORATORY DATA: White count 13, hemoglobin 10, platelets of 316. Sodium 120, potassium 6.0, chlor cb of 90, bicarb 23, BUN of 49, creatinine 1.1, total bilirubin 0.8, ALT 64, AST 99, alkaline phosp hatase 903, albumin 2.3. IMPRESSION: This is a 56-year-old man with progressive peritoneal carcinomatosis due to colon cance r. He has become refractory to therapy. He has severe ascites and also poor performance status. Mone priest had been considering starting chemotherapy with Lonsurf. We discussed that the benefit of that me dication even under the best of circumstances is limited, approximately a 3-month prolongation of ov erall survival. Furthermore, given his poor performance status, I think it is very unlikely that he would benefit clinically and would likely suffer significant side effects. He would like to procee d with hospice care at this point, which I do think is the most appropriate course. RECOMMENDATIONS: 1. Discharge tomorrow with hospice. He is already established with [facility] for palliative home care. 2. I would discontinue his Lasix because I think it may be making his dehydration worse and probabl y will not help his lower extremity edema. For that problem, I would recommend non-pharmacologic me asures, such as elevating his feet and using thigh-high compression stockings. 3. Can gently rehydrate patient as needed to correct electrolyte abnormalities. 4. Continue to drain fluid off the Drew drain in order to keep him comfortable. 5. Continue Zofran and other symptom relief medications. We will continue to follow the patient with you closely while he is in the hospital. /[id number]/MODL
[2016-10-21 17:38] LABS: ANION GAP 7 mEq/L (8-16); CALCIUM 8.2 mg/dL (8.5-10.4); CARBON DIOXIDE 26 mEq/l (22-31); CHLORIDE 88 mEq/L (97-110); CREATININE 1.2 mg/dL (0.7-1.3); GLOMERULAR FILTRATION RATE > 60; GLUCOSE 131 mg/dL (70-100); POTASSIUM 5.3 mEq/L (3.5-5.2); SODIUM 121 mEq/L (134-144)
[2016-10-21] MEDS ORDERED: NS 1,000 ML IV SCH (18:45)
--- NOTE | 2016-10-21 18:48 | GHP ---
[f rep st] HISTORY AND PHYSICAL DATE OF ADMISSION: 10/21/2016 CHIEF COMPLAINT: Hyperkalemia, nausea, vomiting. HISTORY OF PRESENT ILLNESS: The patient is a pleasant 56-year-old male with history of colon cancer with peritoneal carcinomatosis, who was sent over from [facility] today after labs revealed hyponatremia and hyperkalemia with a potassium of 6. The patient was recently hospitalized September 23 and for nausea, vomiting, and hyponatremia. Since that time, those symptoms improved. However, over the past week, he has had persistent nausea and vomiting. He also reports constipation. No fevers, chills or sweats. His abdomen is constantly distended secondary to the tumor itself. Per he and his , they have been draining off 2 L via his PleurX catheter at night. He has minimal energy. His last day at work was last week. He has not been able to take in much p.o., but actually has an appetite today. They have enrolled in Hospice with [facility], who came and evaluated him at home yesterday. The patient had a left upper quadrant loculation that was recently drained. He presented on October 19 with concern of recurrence. Abdominal ultrasound at that time did not show recurrent loculation of ascites. PRIMARY ONCOLOGIST: Dr. Angeles. PAST MEDICAL HISTORY: Colon cancer with peritoneal carcinomatosis. Recent left upper quadrant loculation that was drained. BEAN on CPAP. PAST SURGICAL HISTORY: Chemo ports, bowel resection, PleurX catheter placement , tonsillectomy. REVIEW OF SYSTEMS: Completed a 10-point review of systems. SOCIAL HISTORY: He lives with his in [place]. No illicits, tobacco or alcohol. 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 FAMILY HISTORY: Father with colon cancer. ALLERGIES: No known drug allergies. MEDICATIONS: Senna p.r.n., milk of magnesia p.r.n., herbal supplements, Aleve p.r.n., [place]ad 5/325 q.4 hours p.r.n., MS Contin 30 mg b.i.d., Ativan as needed, Lasix 40 mg daily, dexamethasone 4 mg daily, Zofran as needed. PHYSICAL EXAMINATION: VITAL SIGNS: Temperature 36.2, blood pressure 105/87, heart rate is 90-109, respirations 20, 97% on 2 L. GENERAL: Cachectic, chronically ill-appearing, but smiling. HEENT: PERRLA. Dry mucous membranes. CV: Regular rate and rhythm. No murmurs, gallops or rubs. +1 lower extremity edema. LUNGS: Diminished at bases. ABDOMEN: Diffusely distended. Palpable tumor, especially over the left side of the abdomen. No tenderness on palpation. PleurX catheter sites dressed, clean, dry, and intact. : No suprapubic tenderness. MUSCULOSKELETAL: Moving all 4 extremities. NEUROLOGIC : 2-12 intact. PSYCH: Alert and oriented x3. LABS: WBC 13, hemglobin 10, hematocrit 31, platelets 316. Sodium 120 ( baseline is 129), potassium 6, chloride 90, BUN 49, creatinine 1.1 (baseline 0.9 ), glucose 108, calcium 8.0, conjugated bilirubin 0.6, AST 99, ALT 64, alkaline phosphatase 903, total protein 5, albumin is 2.3. EKG is personally reviewed by me: Normal sinus rhythm, mildly peaked T-waves in V2, V3. ASSESSMENT AND PLAN: 1. Hyperkalemia: Patient's potassium is chronically elevated at 5.4, 5.5. There are mildly peaked T's on EKG today. Will dose Kayexalate, monitor on telemetry and hydrate. 2. Mild acute kidney injury. Creatinine is 1.1 today, baseline 0.9. He did receive a liter of normal saline in the ED. We will repeat labs before giving more fluid. 3. Hypovolemic hyponatremia secondary to volume overload: likely intravascularly dry. This evening when he takes off fluid via the PleurX, we will dose albumin. Hold Lasix, gentle IVFs 4. Metastatic colon cancer with peritoneal carcinomatosis: Patient's primary oncologist is Dr. Angeles. Patient is now enrolled with [facility]. 5. Obstructive sleep apnea: Continue CPAP. 6. Chronic abdominal pain secondary to malignancy. Continue home medications. 7. Constipation: Bowel regimen. 8. Diet: Regular. 9. Deep vein thrombosis prophylaxis with Lovenox. DISPOSITION: The patient warrants observation admission given acute electrolyte abnormalities warranting telemetry and IV fluids. /[id number]/MODL MTDD
[2016-10-21] MEDS ORDERED: ALBUMIN 25% 100 ML SOLN IV ONE (19:37)
[2016-10-21] MEDS: morphINE SR 30 MG TAB PO SCH (21:31)
[2016-10-21 23:37] LABS: COLOR YELLOW; LEUKOCYTE ESTERASE,URINE NEGATIVE (NEGATIVE); NITRITE,URINE NEGATIVE (NEGATIVE)
[2016-10-22] MEDS ORDERED: oxyCODONE IR 5 MG TAB PO PRN (00:08)
[2016-10-22] MEDS ORDERED: NALOXONE HCL 0.4 MG/ML INJ IVP PRN (01:05)
[2016-10-22] MEDS ORDERED: HYDROmorphONE/DILAUDID 6 MG/30 ML PCA IV PRN (01:05)
[2016-10-22] MEDS ORDERED: LORazepam 2 MG/ML INJ IVP PRN (01:06)
[2016-10-22 06:18] LABS: HEMATOCRIT 28.4 % (40.0-51.0); MEAN CELL HEMOGLOBIN 24.5 pg (27.9-34.1); MEAN CELL HEMOGLOBIN CONCENTR. 31.7 g/dL (32.4-36.7); MEAN CELL VOLUME 77.2 fL (81.5-99.8); RED BLOOD CELL COUNT 3.68 10^6/uL (4.40-6.38); RED CELL DISTRIBUTION WIDTH 17.2 % (11.5-15.2)
[2016-10-22 06:55] LABS: ANION GAP 6 mEq/L (8-16); CALCIUM 8.1 mg/dL (8.5-10.4); CARBON DIOXIDE 28 mEq/l (22-31); CHLORIDE 90 mEq/L (97-110); CREATININE 1.1 mg/dL (0.7-1.3); GLOMERULAR FILTRATION RATE > 60; GLUCOSE 106 mg/dL (70-100); POTASSIUM 4.8 mEq/L (3.5-5.2); SODIUM 124 mEq/L (134-144)
[2016-10-22 07:30] VITALS: RESP 18
[2016-10-22] MEDS ORDERED: ENOXAPARIN 40 MG/0.4 ML SYR SC SCH (09:00)
[2016-10-22] MEDS ORDERED: Herbals/Supplements -Info Only PO SCH (09:00)
[2016-10-22] MEDS ORDERED: DEXAMETHASONE 4 MG TAB PO SCH (09:00)
[2016-10-22] MEDS ORDERED: FUROSEMIDE 40 MG TAB PO SCH (09:00)
[2016-10-22] MEDS: morphINE SR 30 MG TAB PO SCH (09:37)
[2016-10-22 11:47] VITALS: BP 110/68; PULSE 91; TEMP 98.1; O2SAT 96
--- NOTE | 2016-10-22 16:55 | GCON ---
[f rep st] CONSULTATION DISCHARGE DIAGNOSES: 1. End-stage metastatic colon cancer with carcinomatosis. 2. Hypokalemia. 3. Hyponatremia. 4. Dehydration. 5. Mild acute kidney injury. 6. Chronic abdominal ascites with PleurX catheter. HISTORY: This is a 56-year-old male with end-stage colon cancer. He will actually be transitioned to hospice fairly soon. He was admitted for hyperkalemia, nausea, and vomiting. HOSPITAL COURSE: Patient did have some mild hyperkalemia that seems to be chronic over the last wed. He was given a dose of Kayexalate as well as some gentle hydration. His creatinine and potassi um improved. He still remains a little bit hyponatremic. He does want to go home. He will have [facility] come see him today, I believe, to transition to hospice. I did consider maybe low-dose Kayexalate outpatient; but I think that since he is going into hospice and will not have monitoring of his potassium and is not necessarily related to comfort, I have dec ided against it. He will be discharged home today. /[id number]/MODL
== END 2016-10-22 15:26 | disposition home or self-care (01) ==
LOC: F3E 15:41
PROVIDERS: ADMIT Internal Medicine; ATTEND Internal Medicine
DX: E87.1 Hypo-osmolality and hyponatremia (principal); E87.5 Hyperkalemia; E86.0 Dehydration; R18.0 Malignant ascites; G89.3 Neoplasm related pain (acute) (chronic); K59.00 Constipation, unspecified; G47.33 Obstructive sleep apnea (adult) (pediatric); C78.6 Secondary malignant neoplasm of retroperitoneum and peritoneum; Z85.038 Personal history of other malignant neoplasm of large intestine
CPT/HCPCS: 93005; G0378; J1170; J1642; J1650; J2060; J2405; P9047